=== PATIENT | female | born 1975 | race Caucasian/White ===

== ENCOUNTER → 2022-07-28 10:14 | Outpatient (CLI) | payer OTHER, SELFPAY ==
[2022-07-28 11:35] LABS: Hematocrit 31.1 % (36-46); Hemoglobin 10.2 g/dL (12.0-16.0); Mean Corpuscular HGB Conc 32.8 % (30-36); Mean Corpuscular Hemoglobin 24.4 PG (26-34); Mean Corpuscular Volume 74.3 fL (80-100); Platelet Count 241 X10^3/uL (150-400); Red Blood Cell Count 4.18 X10^6/uL (4.0-5.2); Red Cell Distribution Width 16.5 % (11.6-14.8)
[2022-07-28 12:03] LABS: Alanine Aminotransferase 21 IU/L (<35); Albumin 4.1 g/dL (3.5-5.0); Albumin Globulin Ratio 1.5 (1.0-2.8); Alkaline Phosphatase 61 U/L (38-126); Aspartate Aminotransferase 26 IU/L (14-36); BUN Creatinine Ratio 23.1 (6-22); Bilirubin Total 0.4 mg/dL (0.2-1.3); Blood Urea Nitrogen 18 mg/dL (7-17); Calcium 8.7 mg/dL (8.4-10.2); Carbon Dioxide 28 mmol/L (22-32); Chloride 103 mmol/L (98-107); Cholesterol 172 mg/dL (140-199); Estimated Glomerular Filt Rate > 60 mL/min (>60); Globulin 2.8 g/dL (1.7-4.1); Glucose 83 mg/dL (70-100); HDL Cholesterol 105 mg/dL (40-60); HEMOLYSIS < 15 (0-50); LDL Cholesterol Calculated 53 mg/dL (<100); Potassium 3.9 mmol/L (3.4-5.1); Sodium 136 mmol/L (137-145); Total Protein 6.9 g/dL (6.3-8.2); Triglycerides 72 mg/dL (35-150)
[2022-07-28 12:14] LABS: HEMOLYSIS < 15 (0-50); Iron 25 ug/dL (37-170)
[2022-07-28 12:24] LABS: Percent Iron Saturation 5 % (15-50); Total Iron Binding Capacity 480 ug/dL (265-497); Transferrin 393 mg/dL (206-381)
[2022-07-28 12:31] LABS: TSH w/ Reflex to FT4 0.65 uIU/mL (0.47-4.68)
[2022-07-28 12:50] LABS: Ferritin 5 ng/mL (6-137)
== END ==
PROVIDERS: PCP Internal Medicine; Referring Provider Internal Medicine; Visit Provider Internal Medicine
DX: R53.83 Other fatigue (principal); D50.9 Iron deficiency anemia, unspecified
CPT/HCPCS: 36415; 80053; 80061; 82728; 83540; 83550; 84443; 85027

== ENCOUNTER 2022-12-05 07:44 | Day surgery (SDC) | payer OTHER, SELFPAY ==
[2022-12-05 07:58] VITALS: BP 111/73; PULSE 84; RESP 16; TEMP 36.1; O2SAT 100; BMI 19.8
[2022-12-05] MEDS: LACTATED RINGERS 1,000 ML 150 ML IV (08:17)
--- NOTE | 2022-12-05 08:32 | PM.HP.1 ---
History of Present Illness History of Present Illness Date Patient Seen: 12/05/22 Time Patient Seen: 08:32 [place] [facility] [place]: The patient presents for colorectal screening. They have never had any previous examination for such. No personal or family history of colon cancer. On further history denies any recent gastrointestinal symptoms. No nausea, vomiting, abdominal pain, loss of appetite, unexplained weight loss, change in bowel habits, or blood per rectum. 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 household members: spouse Smoking Status: Never smoker alcohol intake: current Meds Home Medications and Allergies Home Medications Medication Instructions Recorded Confirmed Type lorazepam 0.5 mg tablet 0.5 mg PO DAILY PRN anxiety #30 07/28/22 12/05/22 Rx tabs nortriptyline 25 mg capsule 25 mg PO DAILY #90 caps 07/28/22 12/05/22 Rx propranolol 10 mg tablet 10 mg PO DAILY #90 tabs 07/28/22 12/05/22 Rx sodium,potassium,mag sulfates 17.5 See Rx Instructions PO .COMPLEX 09/29/22 12/05/22 Rx gram-3.13 gram-1.6 gram oral soln #354 mL (Suprep Bowel Prep Kit) sumatriptan succinate 100 mg tablet 100 mg PO .COMPLEX PRN migraine 11/21/22 12/05/22 Rx headache #14 tabs Allergies Allergy/AdvReac Type Severity Reaction Status Date / Time No Known Drug Allergies Allergy Verified 08/02/22 15:04 Exam Vital Signs (past 8 hours): - 12/05/22 07:58 Temperature 97 F L Pulse Rate 84 Respiratory Rate 16 Blood Pressure 111/73 Pulse Oximetry 100 Oxygen Delivery Method Room Air Oxygen Delivery Method Room Air Narrative Exam Narrative: General adult woman alert oriented no acute distress Abdomen soft nontender nondistended Assessment & Plan Assessment & Plan narrative: The patient requires colorectal screening and colonoscopy is recommended. Technical details were discussed. Risks, benefits, alternatives explained. Risks including but not limited to myocardial infarction, aspiration, bleeding, pain, missed lesion, incomplete examination, need for further radiographic studies, colonic perforation, and need for major abdominal surgery were discussed. All questions were answered to their satisfaction, and they are in agreement with this plan.
[2022-12-05 09:11] VITALS: BP 100/58; PULSE 75; RESP 15; O2SAT 100
--- NOTE | 2022-12-05 09:11 | PM.OP.COLON ---
Operative Date/Time/Diagnoses Date of procedure: 12/05/22 Time of procedure: 09:11 Pre-op diagnosis: Screening colonoscopy Post-op diagnosis: same Procedure & Clinicians Study performed: Colonoscopy Same procedure as scheduled: Yes Indications: Colorectal screening Surgeon: Pato Neri Procedure Notes Procedure in detail: The history and physical was performed/updated and the patient is ASA class is 2. The procedure was discussed in detail with the patient. Potential risks complications including infection, bleeding, missed diagnosis, perforation, need for surgery, and were explained. Their questions were answered and informed consent was obtained. Patient was brought to the procedure room and placed standard monitoring equipment. The patient's vital signs were monitored continuously throughout the entire procedure. Prior to starting time-out was performed. The patient was placed in the left lateral recumbent position. Procedural sedation was administered by anesthesia. Examination began with a thorough inspection of the perianal area there was no evidence of fissures, fistulae, external hemorrhoids or cutaneous malignancy. The colonoscopy scope was then placed into the anal canal and was advanced to the cecum, which was identified by the ileocecal valve, the appendiceal orifice and the confluence of the taenia. The scope was then slowly withdrawn examining colon thoroughly in all directions, irrigating it of any residual stool. Normal colonoscopy, without masses or polyps The patient tolerated the procedure well. They will be discharged once criteria are met. The prep was of good/excellent quality. The withdrawl time was 6 minutes. Specimen(s): none sent Impression: Normal colonoscopy Post-procedure Recommendations: Colonoscopy in 10 years Disposition: same day surgery
[2022-12-05 09:12] VITALS: BP 90/52; PULSE 75; RESP 12; TEMP 36.4; O2SAT 100
[2022-12-05 09:16] VITALS: BP 106/67; PULSE 80; RESP 12; O2SAT 100
[2022-12-05 09:22] VITALS: BP 99/57; PULSE 81; RESP 17; O2SAT 99
[2022-12-05 09:30] VITALS: BP 107/52; PULSE 89; RESP 13; O2SAT 100
--- NOTE | 2022-12-05 10:22 | SUR.PHASEII ---
Pt c/o tearing left eye with some irritation. Eye was lightly pink and pt denied blurry vision. Anesthesia provider assessed pt at the bed and irritation had resolved. No new orders. Pt was advised to use a moisturizing eye drop and apply a cool cloth to her left eye when she arrived home.
== END 2022-12-05 10:27 | disposition home or self-care (01) ==
PROVIDERS: PCP Internal Medicine; Referring Provider Surgery; Visit Provider Surgery
PROC: 0DJD8ZZ Inspection of Lower Intestinal Tract, Via Natural or Artificial Opening Endoscopic (ICD-10-PCS; CPT 45378; principal; 2022-12-05 08:45)
DX: Z12.11 Encounter for screening for malignant neoplasm of colon (principal)
CPT/HCPCS: 45378